=== PATIENT | male | born 1980 | race Caucasian/White ===

== ENCOUNTER 2021-01-19 15:17 | Inpatient (IN) | payer OTHER ==
[~2021-01-19] VITALS: Ht 167.6 cm; Wt 76.3 kg
[2021-01-19] MEDS ORDERED: IBUPROFEN 800 MG TAB PO ONE (16:10)
[2021-01-19 18:46] LABS: HEMATOCRIT 57.5 % (42.0-52.0); HEMOGLOBIN 19.4 g/dl (13.5-17.5); MEAN CORPUSCULAR HEMOGLOBIN 27.7 pg (27.0-33.0); MEAN CORPUSCULAR HGB CONC 33.7 g/dl (32.0-36.5); PLATELET COUNT, AUTOMATED 257 10^3/uL (150-450); RED BLOOD COUNT 7.01 10^6/uL (4.30-6.10); WHITE BLOOD COUNT 11.8 10^3/uL (4.0-10.0)
[2021-01-19 19:05] LABS: ACETAMINOPHEN LEVEL < 2.0 UG/ML (10.0-30.0); ALBUMIN 4.2 GM/DL (3.2-5.2); ALT/SGPT 175 U/L (12-78); BILIRUBIN,DIRECT 0.2 MG/DL (0.0-0.2); BILIRUBIN,TOTAL 0.7 MG/DL (0.2-1.0); BLOOD UREA NITROGEN 17 MG/DL (7-18); CALCIUM LEVEL 9.2 MG/DL (8.5-10.1); CARBON DIOXIDE LEVEL 25 MEQ/L (21-32); CHLORIDE LEVEL 107 MEQ/L (98-107); CREATININE FOR GFR 1.48 MG/DL (0.70-1.30); ETHYL ALCOHOL (ETHANOL) < 0.003 % (0.000-0.010); GLOMERULAR FILTRATION RATE 56.3 (>60); GLUCOSE, FASTING 113 MG/DL (70-100); POTASSIUM SERUM 4.5 MEQ/L (3.5-5.1); SALICYLATE LEVEL < 1.7 MG/DL (5.0-30.0); SODIUM LEVEL 137 MEQ/L (136-145); THYROID STIMULATING HORMONE 0.843 uIU/ML (0.358-3.740); TOTAL PROTEIN 7.4 GM/DL (6.4-8.2)
[2021-01-19] MEDS ORDERED: CETI-36 PO (19:18)
[2021-01-19] MEDS ORDERED: BACL10TA2 PO (19:18)
[2021-01-19] MEDS ORDERED: D31000TA2 PO (19:18)
[2021-01-19] MEDS ORDERED: WELLTAB40 PO (19:18)
[2021-01-19] MEDS ORDERED: CYMB1CAP5 PO (19:18)
[2021-01-19] MEDS ORDERED: CVS1CAP2 PO (19:18)
[2021-01-19] MEDS ORDERED: TRAZ-252 PO (19:18)
[2021-01-19] MEDS ORDERED: HOME MED LIST COMPLETE! XX SCH (19:20)
[2021-01-19 19:33] LABS: AMPHETAMINES LEVEL URINE NEGATIVE (NEGATIVE); BARBITURATES URINE NEGATIVE (NEGATIVE); BENZODIAZEPINES URINE NEGATIVE (NEGATIVE); CANNABINOIDS URINE NEGATIVE (NEGATIVE); COCAINE METABOLITE URINE NEGATIVE (NEGATIVE); METHADONE URINE NEGATIVE (NEGATIVE); OPIATES URINE NEGATIVE (NEGATIVE); PHENCYCLIDINE URINE NEGATIVE (NEGATIVE)
[2021-01-19 20:19] LABS: RSV AMPLIFICATION NEGATIVE (NEGATIVE)
[2021-01-19] MEDS ORDERED: traZODone 50 MG TAB PO PRN (20:35)
[2021-01-19] MEDS ORDERED: MAALOX 30 ML SUSP *UDC PO PRN (20:35)
[2021-01-19] MEDS ORDERED: MOM 30ML SUSPENSION UDC PO PRN (20:35)
[2021-01-19] MEDS ORDERED: BACLOFEN 10 MG TAB PO PRN (20:35)
[2021-01-19 23:56] VITALS: BP 139/80
[2021-01-20 06:21] VITALS: BP 145/82
[2021-01-20] MEDS: LACTOBACILLUS ACIDOPHILUS CAP (BACID) PO SCH (08:19)
[2021-01-20] MEDS: buPROPion **XL** TABLET 150MG (WELLBUTRIN XL) PO SCH (08:19)
[2021-01-20] MEDS: VITAMIN D 1,000 INTERNATIONAL UNITS TABLET PO SCH (08:19)
[2021-01-20] MEDS: CETIRIZINE (ZyrTEC) 10 MG TAB PO SCH (08:19)
[2021-01-20] MEDS: DULoxetine 30MG CAPSULE (CYMBALTA) PO SCH (08:19)
[2021-01-20] MEDS: ACETAMINOPHEN TAB 650MG DOSE (2X325MG) PO PRN ×2 (08:24→20:47)
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
[2021-01-20] MEDS: PROPRANOLOL 10 MG TAB PO SCH ×3 (10:47→20:46)
[2021-01-20 18:38] VITALS: BP 134/87
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
[2021-01-21 06:14] VITALS: BP 136/56
[2021-01-21] MEDS: CETIRIZINE (ZyrTEC) 10 MG TAB PO SCH (08:38)
[2021-01-21] MEDS: PROPRANOLOL 10 MG TAB PO SCH ×3 (08:38→21:17)
[2021-01-21] MEDS: VITAMIN D 1,000 INTERNATIONAL UNITS TABLET PO SCH (08:38)
[2021-01-21] MEDS: buPROPion **XL** TABLET 150MG (WELLBUTRIN XL) PO SCH (08:38)
[2021-01-21] MEDS: LACTOBACILLUS ACIDOPHILUS CAP (BACID) PO SCH (08:38)
[2021-01-21] MEDS: DULoxetine 30MG CAPSULE (CYMBALTA) PO SCH (08:40)
[2021-01-21 16:44] VITALS: BP 140/79
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
[2021-01-22 06:40] VITALS: BP 143/88
[2021-01-22] MEDS: VITAMIN D 1,000 INTERNATIONAL UNITS TABLET PO SCH (08:35)
[2021-01-22] MEDS: CETIRIZINE (ZyrTEC) 10 MG TAB PO SCH (08:35)
[2021-01-22] MEDS: DULoxetine 30MG CAPSULE (CYMBALTA) PO SCH (08:35)
[2021-01-22] MEDS: buPROPion **XL** TABLET 150MG (WELLBUTRIN XL) PO SCH (08:35)
[2021-01-22] MEDS: LACTOBACILLUS ACIDOPHILUS CAP (BACID) PO SCH (08:35)
[2021-01-22] MEDS: PROPRANOLOL 10 MG TAB PO SCH ×3 (08:36→20:46)
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
[2021-01-22 16:44] VITALS: BP 126/83
[2021-01-23 06:23] VITALS: BP 137/78
[2021-01-23 08:09] VITALS: BP 157/94
[2021-01-23] MEDS: PROPRANOLOL 10 MG TAB PO SCH (08:09)
[2021-01-23] MEDS: CETIRIZINE (ZyrTEC) 10 MG TAB PO SCH (08:10)
[2021-01-23] MEDS: VITAMIN D 1,000 INTERNATIONAL UNITS TABLET PO SCH (08:10)
[2021-01-23] MEDS: buPROPion **XL** TABLET 150MG (WELLBUTRIN XL) PO SCH (08:10)
[2021-01-23] MEDS: LACTOBACILLUS ACIDOPHILUS CAP (BACID) PO SCH (08:10)
[2021-01-23] MEDS: DULoxetine 30MG CAPSULE (CYMBALTA) PO SCH (08:10)
[2021-01-23] MEDS ORDERED: CYMB1CAP5 PO (10:32)
[2021-01-23] MEDS ORDERED: TRAZ-252 PO (10:32)
[2021-01-23] MEDS ORDERED: WELLTAB40 PO (10:32)
[2021-01-23] MEDS ORDERED: PROP10TA56 PO (10:32)
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
== END 2021-01-23 13:25 | disposition home or self-care (01) | DRG 882 ==
LOC: M ED 15:17 → M ED INP 20:35 → M PSY 22:39
PROVIDERS: ADMIT Student in an Organized Health Care Education/Training Program; ATTEND Student in an Organized Health Care Education/Training Program
DX: F43.10 Post-traumatic stress disorder, unspecified (principal); F10.11 Alcohol abuse, in remission; Z63.0 Problems in relationship with spouse or partner; Z87.820 Personal history of traumatic brain injury; G47.33 Obstructive sleep apnea (adult) (pediatric); Z20.822 Contact with and (suspected) exposure to COVID-19; Z79.899 Other long term (current) drug therapy; Z88.0 Allergy status to penicillin; Z88.8 Allergy status to other drugs, medicaments and biological substances; Z91.030 Bee allergy status; Z87.891 Personal history of nicotine dependence